=== PATIENT | male | born 1975 | race Caucasian/White ===

== ENCOUNTER 2020-09-05 14:52 | Emergency (ER) | payer MEDICARE, MEDICAID, SELFPAY ==
[2019-08-02 12:56] VITALS: BMI 31.1
[2020-09-05 14:53] VITALS: BP 160/136; PULSE 85; RESP 20; TEMP 36.2; O2SAT 97; BMI 39.4
--- NOTE | 2020-09-05 15:05 | EKG12_ITS ---
Test Reason : SOB Blood Pressure : / mmHG Vent. Rate : 076 BPM Atrial Rate : 076 BPM P-R Int : 168 ms QRS Dur : 086 ms QT Int : 396 ms P-R-T Axes : 063 053 030 degrees QTc Int : 445 ms Somatic / Motion Artifact Normal sinus rhythm Confirmed by ALLIE REVELES, MIKEY ([id number]), script editor ZEV ANNA ([id number]) on 09/10/2020 10:40:17 AM Referred By: HENRY Confirmed By:MIKEY KELLEY MD
--- NOTE | 2020-09-05 15:13 | ED.VIS.GEN ---
History of Present Illness Chief Complaint: Shortness of Breath Informant: Patient Onset: Days Context: Gradual Onset Timing: Continuous Current Severity: Moderate Maximum Severity: Moderate Narrative: Patient is a 45-year-old male who presents to the emergency department with cough shortness of breath. Patient states that he is been sick for about 10 days. He states that he was exposed to someone with Covid about 2 weeks ago. He states he began to get sick last Wednesday. He states he went to a court date last Wednesday and had a low-grade fever. He is been quarantining. He states that he is had diminished appetite, loss of taste and smell, and shortness of breath. He had a scant cough. He is also had intermittent fevers and chills. He has no history immunosuppression. He denies any history of underlying lung disease. He denies any other systemic complaints. Prior similar symptoms: No Recent Illness/Hospitalization: No Past Medical History - Allergies and Home Meds Allergies/Adverse Reactions: Allergies naproxen Adverse Reaction (Verified 09/05/20 14:53) Nausea Primary Care Physician: Care Physician,No Primary [Primary Care Provider] - Prior records reviewed: Yes Past Medical History: - - Depression Surgical History: - - Back surgery Smoking Status: Current every day smoker - Family History Maternal Family History: Reports: No pertinent history Review of Systems General: Reports: Malaise. Denies: Chills, Fever, Sweats Eyes: Denies: Visual changes - bilaterally, Diplopia ENT: Denies: Rhinorrhea, Sore throat Cardiovascular: Denies: Chest pain, Palpitations Respiratory: Reports: Cough. Denies: Dyspnea, Dyspnea on exertion Gastrointestinal: Reports: Nausea. Denies: Abdominal pain, Vomiting, Diarrhea, Melena, Hematochezia Genitourinary: Denies: Dysuria, Hematuria, Frequency Musculoskeletal: Reports: Myalgias. Denies: Back pain, Extremity Pain Skin: Denies: Rash, Wounds Neurological: Denies: Headache, Weakness, Numbness Physical Exam Vital Signs/Narrative: Vital Signs Temp Pulse Resp BP Pulse Ox 09/05/20 14:53 97.1 F L 85 20 H 160/136 H 97 Inital Vital Signs reviewed: Yes General: Well nourished, Well developed, No Acute Distress Head: Normocephalic, Atraumatic Eyes: Perrl, EOMI ENT: Moist mucous membranes, No rhinorrhea Neck: Supple, Nontender Cardiovascular: Regular rate, Regular rhythm, No murmurs Respiratory: No distress, CTA bilaterally, Chest nontender Abdomen: Soft, Nontender, Nondistended, Normal bowel sounds Back: Nontender, Normal Inspection Extremities: Nontender, No edema Skin: Normal color, No rash Neurological: Alert, Oriented x3, Cranial nerves II-XII grossly intact, Normal Strength, Normal Sensation Psychological: Normal affect, Normal Mood Diagnostic/Tx/Re-eval Clinical Impression(s) from Imaging Studies Chest X-Ray 09/05/20 15:36 IMPRESSION: Normal x-ray examination of the chest. Electronically Signed: Mian Burton MD at 15:53 EST Tel , Service support , Abnormal Lab Results 09/05/20 09/05/20 15:15 15:15 WBC 6.9 RBC 4.66 Hgb 14.3 Hct 42.6 MCV 91.4 MCH 30.7 MCHC 33.6 RDW Std Deviation 43.8 RDW Coeff of Kirt 13.0 Plt Count 289 MPV 8.9 Immature Gran % (Auto) 0.100 Neut % (Auto) 44.9 L Lymph % (Auto) 37.8 [place] % (Auto) 7.0 Eos % (Auto) 9.6 H Baso % (Auto) 0.6 Absolute Neuts (auto) 3.1 Absolute Lymphs (auto) 2.59 Nucleated RBC % 0 Sodium 141 Potassium 3.8 Chloride 111 H Carbon Dioxide 27.0 Anion Gap 3 L BUN 12 Creatinine 0.82 Estim Creat Clear Calc 122.24 Est GFR (MDRD) Af Amer 129 Est GFR (MDRD) Non-Af 107 BUN/Creatinine Ratio 14.6 Glucose 113 H Calcium 8.3 L Total Bilirubin 0.30 AST 21 ALT 27 Alkaline Phosphatase 73 Total Protein 7.3 Albumin 3.3 Globulin 4.0 Albumin/Globulin Ratio 0.8 L - Rhythm Strip Rhythm Strip: Sinus Rhythm Rate: 80 Ectopy: None - EKG Initial EKG Interpretation: Sinus Rhythm, No Acute Injury Pattern Prior: Unchanged - Medical Decision Making Patient is a 45-year-old male that presents to the emergency department with Covid type symptoms. However, he is not hypoxic or tachypneic. Metabolic work-up was obtained. Chest x-ray was obtained. There is no focal infiltrative process. Screening labs are unremarkable. I did obtain a send out Covid as I did not feel the rapid test would be diagnostic given the duration of his symptoms. The patient was counseled on his results and suspicion for Covid. At this point, I do not feel that he requires hospitalization. He is day 10 of illness. I do feel that he is safe for outpatient follow-up. Impression 1. COVID-19 ED Disposition - Plan for ED Patient: Instructions: Coronavirus Disease 2019 (COVID-19): Overview, Pending Outpatient COVID Test Prescriptions: Ondansetron [Zofran Odt] 4 mg PO Q8H PRN PRN #10 tab PRN Reason: Nausea Prescription Printed Referrals: Care Physician,No Primary [Primary Care Provider] -
[2020-09-05] MEDS: 0.9% Normal Saline 1,000 ML 125 ML IV (15:20)
[2020-09-05] MEDS: Acetaminophen 500 MG Tablet 1000 MG PO (15:20)
[2020-09-05 15:24] VITALS: O2SAT 98
[2020-09-05 15:28] LABS: Absolute Lymphocyte Count 2.59 X10^3/uL (0.83-4.51); Absolute Neutrophil Count 3.1 X10^3/uL (2.0-7.7); Basophil# 0.04 X10^3/uL; Basophil% 0.6 % (0-1); Eosinophil# 0.66 X10^3/uL; Eosinophils% 9.6 % (0-5); Hematocrit 42.6 % (40-54); Hemoglobin 14.3 g/dL (13.0-16.5); Lymphocyte # 2.59 X10^3/ul (4.0); Lymphocyte % 37.8 % (19-41); Mean Corp Hgb Conc 33.6 g/dL (32-36); Mean Corpuscular Hgb 30.7 pg (27.0-32.0); Mean Corpuscular Volume 91.4 fL (80-94); Mean Platelet Vol. 8.9 fl (6.2-12.0); Monocyte# 0.48 X10^3/uL; NRBC Flagged by Analyzer 0 % (0-5); Neutrophil # 3.07 X10^3/uL (2.7-7.7); Neutrophil % 44.9 % (47-70); Platelet Count 289 K/mm3 (150-450); RBC Distribution Width SD 43.8 fl (35.1-43.9); Red Blood Count 4.66 M/mm3 (4.6-6.2); White Blood Count 6.9 K/mm3 (4.4-11.0)
--- NOTE | 2020-09-05 15:36 | RAD_ITS ---
STUDY: X-RAY CHEST REASON FOR EXAM: Male, 45 years old. PT C/O COUGH, FEVER, SOB, LOSS OF TASTE AND SMELL AND SORE THROAT. REPORTS SYMPTOMS STARTING 9 DAYS AGO. TECHNIQUE: Single AP portable view of the chest. COMPARISON: 03/07/2019 FINDINGS: The lungs are clear and expanded. There is no demonstrated pleural abnormality. Normal size heart. Normal mediastinum and emily. Normal visualized pulmonary arteries. Normal visualized aortic arch and descending thoracic aorta. Normal visualized thoracic spine. Normal visualized ribs, clavicles, and shoulders. There is no demonstrated abnormality of the visualized soft tissue structures of the upper abdomen. RAD/Chest 1 View (Portable) IMPRESSION: Normal x-ray examination of the chest. Electronically Signed: Mian Burton MD at 15:53 EST Tel , Service support ,
[2020-09-05 15:39] LABS: ALB/GLOB Ratio 0.8 RATIO (0.9-2.4); AST(SGOT) 21 U/L (15-37); Alanine Aminotransfer ALT/SGPT 27 U/L (16-61); Albumin, Serum 3.3 g/dL (3.2-5.0); Alkaline Phosphatase 73 U/L (45-117); Anion Gap 3 (5-15); BUN 12 mg/dL (7-18); BUN/Creat Ratio 14.6 RATIO (10-20); Calcium,Total 8.3 mg/dL (8.5-10.1); Chloride 111 mmol/L (98-107); Creatinine, Serum 0.82 mg/dL (0.70-1.30); EST Glomerular Filtration Rate 107 mL/min (>60); Est Glom Filt Rate - Afr Amer 129 mL/min (>60); Estimated Creatinine Clearance 122.24 ml/min; Glucose 113 mg/dL (74-106); Potassium 3.8 mmol/L (3.5-5.1); Protein, Total 7.3 g/dL (6.4-8.2); Sodium Level 141 mmol/L (136-145)
[2020-09-05 16:21] VITALS: BP 130/86; PULSE 79; RESP 22; O2SAT 98
== END 2020-09-05 16:22 | disposition home or self-care (01) ==
LOC: ED 15:43
PROVIDERS: Emergency Provider Emergency Medicine
DX: U07.1 COVID-19 (principal); F17.200 Nicotine dependence, unspecified, uncomplicated
CPT/HCPCS: 71045; 80053; 85025; 87635; 93005; 96360; 99285; J7030; A4216; U0003

== ENCOUNTER 2020-09-19 11:11 | Emergency (ER) | payer MEDICARE, MEDICAID, SELFPAY ==
[2020-09-19 11:12] VITALS: BP 165/84; PULSE 85; RESP 20; TEMP 35.8; O2SAT 99; BMI 40.0
--- NOTE | 2020-09-19 11:26 | RAD_ITS ---
STUDY: X-RAY CHEST REASON FOR EXAM: Male, 45 years old. SOB X 2-3 WKS TECHNIQUE: Single AP portable view of the chest. COMPARISON: Comparison is made with prior examination dated 03/05/2021. FINDINGS: EKG electrodes are seen. There is blunting of the right costophrenic angle. Mild degree of vascular congestion. There is mild cardiac enlargement. Normal mediastinum and emily. Normal visualized pulmonary arteries. Normal visualized aortic arch and descending thoracic aorta. Normal visualized thoracic spine. Normal visualized ribs, clavicles, and shoulders. There is no demonstrated abnormality of the visualized soft tissue structures of the upper abdomen. RAD/Chest 1 View (Portable) IMPRESSION: Mild cardiomegaly. Findings suggestive of a mild degree of vascular congestion. Blunting of the right costophrenic angle. Electronically Signed: Anthony Garvin MD at 13:05 EST , Service support ,
--- NOTE | 2020-09-19 11:27 | EKG12_ITS ---
Test Reason : SOB Blood Pressure : / mmHG Vent. Rate : 070 BPM Atrial Rate : 070 BPM P-R Int : 172 ms QRS Dur : 090 ms QT Int : 388 ms P-R-T Axes : 060 051 026 degrees QTc Int : 419 ms Normal sinus rhythm Normal ECG Confirmed by ALLIE REVELES, MKIEY ([id number]), electronic news gathering editor ZEV ANNA ([id number]) on 09/20/2020 11:19:25 AM Referred By: JUSTO Confirmed By:MIKEY KELLEY MD
--- NOTE | 2020-09-19 11:29 | ED.VISSUMM ---
- ER Visit Summary Date of Service: 09/19/20 Chief Complaint: [Shortness of breath] History of Present Illness: The patient is a 45 M [presents to the emergency department complaint shortness of breath that started 3 weeks ago. Patient states that he has been evaluated in the emergency department about a week and a half ago and had a negative Covid test at that time. Patient states that he had quarantine at one point because he had an exposure to somebody that had Covid. Patient thinks he may have had another potential exposure within the last week.] Patient states that he does not feel any better and just has no energy and has had intermittent headaches and intermittent fevers. He had minimal cough. He denies any chest pain. He denies recent travel or surgery. No history of PE or DVT. Physical Examination: [HEENT-PERRLA, EOMI. Cranial nerves II through XII grossly intact. TMs clear. Mucous membranes moist. No adenopathy. Cardiovascular-regular rate and rhythm without murmur or ectopy Lungs-clear to auscultation, chest wall stable without crepitus or subcu emphysema Abdomen-normoactive bowel sounds, soft, nontender, no rebound or rigidity, no peritoneal signs. Extremities-intact ?4, normal range of motion, normal pulses, atraumatic] Test Results: [EKG obtained arrival shows sinus rhythm with a ventricular rate of 70 bpm with no acute segment changes. CBC with differential showing a 7.3, hemoglobin 14.8, hematocrit 44, platelets 313. Chemistries unremarkable. Troponin is less than 0.015. BNP was 3.3. D-dimer was 1.13. Covid 19 PCR testing was negative. Chest x-ray interpreted by myself as questionable small effusion in the right lower lobe otherwise nothing significant. Radiology read the x-ray as pulmonary congestion with some blunting of the right costophrenic angle. CTA of the chest obtained showed bilateral right upper lobe and left upper lobe pulmonary emboli that are nonocclusive. Patient also had right upper lobe and right middle lobe groundglass opacities noted.] Emergency Department Course and Treatment: [ IV established on arrival. Patient was given Levaquin 750 mg p.o. Patient started on Eliquis 10 mg p.o. Case was discussed with pulmonology Dr. Evin Zamora who asked that I send off an antibody test for Covid. Patient to be placed on Eliquis and Levaquin and given that he is not available next week due to vacation I was asked to refer him to internal medicine for follow-up. I discussed case with [place] nurse practitioner who schedule patient for follow-up visit next Wednesday at 9:[address] Vieira. Clinically I feel safe to send patient home and he is in agreement. I suspect patient may have had Covid which caused him to be hypercoagulable and developed pulmonary emboli.] Treatment Plan: [Discharged home with instructions to follow-up in 5 days with internal medicine. Patient advised to return if increased shortness of breath or condition should worsen anyway.] Disposition: [Discharged home in stable condition] Impression: [Bilateral pulmonary emboli Pneumonia Dyspnea] This note was generated with [employer] dictation software. It may contain incorrect words, spelling, and punctuation that were not noted in review of the chart prior to signing ED Disposition - Plan for ED Patient: Referrals: Care Physician,No Primary [Primary Care Provider] -
[2020-09-19 12:14] VITALS: BP 150/88; PULSE 78; RESP 16; TEMP 36.8; O2SAT 96
[2020-09-19 12:15] VITALS: BP 150/88; PULSE 78; RESP 16; O2SAT 96
[2020-09-19 12:21] LABS: Absolute Lymphocyte Count 2.38 X10^3/uL (0.83-4.51); Absolute Neutrophil Count 3.9 X10^3/uL (2.0-7.7); Basophil# 0.05 X10^3/uL; Basophil% 0.7 % (0-1); Eosinophil# 0.59 X10^3/uL; Hematocrit 44.4 % (40-54); Hemoglobin 14.8 g/dL (13.0-16.5); Lymphocyte # 2.38 X10^3/ul (4.0); Lymphocyte % 32.5 % (19-41); Mean Corp Hgb Conc 33.3 g/dL (32-36); Mean Corpuscular Hgb 30.6 pg (27.0-32.0); Mean Corpuscular Volume 91.9 fL (80-94); Mean Platelet Vol. 8.9 fl (6.2-12.0); Monocyte# 0.44 X10^3/uL; NRBC Flagged by Analyzer 0 % (0-5); Neutrophil # 3.86 X10^3/uL (2.7-7.7); Neutrophil % 52.7 % (47-70); Platelet Count 313 K/mm3 (150-450); RBC Distribution Width SD 44.3 fl (35.1-43.9); Red Blood Count 4.83 M/mm3 (4.6-6.2); White Blood Count 7.3 K/mm3 (4.4-11.0)
[2020-09-19 12:32] LABS: D-Dimer Quantitative (DVT/PE) 1.13 FEU/ug/m (0.27-0.49)
[2020-09-19 12:36] LABS: Anion Gap 5 (5-15); BUN 16 mg/dL (7-18); BUN/Creat Ratio 17.7 RATIO (10-20); Calcium,Total 9.4 mg/dL (8.5-10.1); Chloride 104 mmol/L (98-107); EST Glomerular Filtration Rate 96 mL/min (>60); Est Glom Filt Rate - Afr Amer 116 mL/min (>60); Estimated Creatinine Clearance 111.37 ml/min; Glucose 101 mg/dL (74-106); Potassium 4.1 mmol/L (3.5-5.1); Sodium Level 136 mmol/L (136-145)
--- NOTE | 2020-09-19 12:50 | CT_ITS ---
STUDY: CTA CHEST REASON FOR EXAM: Male, 45 years old. DYSPNEA/E LEV DDI KACI/SOB/CONGESTION RADIATION DOSAGE (If Supplied By Facility): CTDIvol = ( 15.04 ) mGy, DLP = ( 569.54 ) mGycm TECHNIQUE: The examination was performed with the intravenous administration of IV 100mL Isovue-370. Post-processing of the angiographic images was performed, with multiplanar reformation and 3D reconstruction. Individualized dose optimization techniques were used for this CT. COMPARISON: Comparison is made with prior chest radiograph done earlier today. FINDINGS: Multiple tiny nonocclusive intraluminal filling defects are seen in branches of the right upper and left upper pulmonary arteries. Normal thoracic aorta and visualized great vessels. There is no demonstrated aortic dissection. Normal heart and pericardium. Normal mediastinum. Normal hilar regions. Normal visualized trachea and bronchi. The lungs are well expanded. There are scattered focal areas of groundglass appearance in the right upper lobe as well as in the right middle lobe. Normal pleura. Normal chest wall structures. There are degenerative changes of thoracic spine. Normal visualized upper abdomen. CT/CTA Chest W/WO Contrast IMPRESSION: Multiple small nonocclusive intraluminal filling defects seen in branches of both the right upper and left upper pulmonary arterial branches. Several small areas of patchy groundglass appearance in the right upper lobe and right middle lobe. Electronically Signed: Anthony Garvin MD at 13:36 EST , Service support ,
[2020-09-19 12:54] LABS: Lactic Acid 1.1 mmol/L (0.4-1.9)
[2020-09-19 13:00] VITALS: BP 146/81; PULSE 70; RESP 22; TEMP 36.6; O2SAT 99
[2020-09-19 13:51] LABS: BNP,B-Type NATRIURETIC PEPTIDE 3.3 pg/mL (0-100)
[2020-09-19 14:00] VITALS: BP 121/86; PULSE 89; RESP 18; TEMP 36.9; O2SAT 99
--- NOTE | 2020-09-19 14:14 | ED.DEP ---
ED Disposition - Plan for ED Patient: Instructions: ED Pneumonia (Adult), Pulmonary Embolism Prescriptions: Apixaban [Eliquis] 5 mg PO BID #74 tab Prescription Printed Levofloxacin [Levaquin] 750 mg PO DAILY #7 tab Prescription Printed Referrals: Care Physician,No Primary [Primary Care Provider] - Josee Mata MD [STAFF PHYSICIAN] - 09/24/20 9:30 am
[2020-09-19] MEDS: APIXABAN 5 MG TABLET 10 MG PO (14:29)
[2020-09-19] MEDS: levoFLOXacin 750 MG Tablet PO (14:29)
[2020-09-20 01:00] LABS: SARS-COV-2 TOTAL ABS Reactive (Nonreactive)
== END 2020-09-19 14:30 | disposition home or self-care (01) ==
PROVIDERS: Emergency Provider Emergency Medicine
DX: I26.99 Other pulmonary embolism without acute cor pulmonale (principal); J18.9 Pneumonia, unspecified organism; Z72.0 Tobacco use
CPT/HCPCS: 71045; 71275; 80048; 83605; 83880; 84484; 85025; 85379; 86769; 87040; 87635; 93005; 99285; Q9967; A4216; U0002

== ENCOUNTER → 2021-04-14 15:00 | Outpatient (CLI) | payer MEDICARE, MEDICAID, SELFPAY ==
[2021-04-14 16:57] LABS: Absolute Lymphocyte Count 1.65 X10^3/uL (0.83-4.51); Absolute Neutrophil Count 3.5 X10^3/uL (2.0-7.7); Basophil# 0.03 X10^3/uL; Basophil% 0.5 % (0-1); Eosinophil# 0.32 X10^3/uL; Eosinophils% 5.4 % (0-5); Hematocrit 37.3 % (40-54); Hemoglobin 12.3 g/dL (13.0-16.5); Lymphocyte # 1.65 X10^3/ul (0.83-4.51); Lymphocyte % 27.9 % (19-41); Mean Corpuscular Hgb 31.1 pg (27.0-32.0); Mean Corpuscular Volume 94.4 fL (80-94); Mean Platelet Vol. 9.2 fl (6.2-12.0); Monocyte# 0.43 X10^3/uL; Monocyte% 7.3 % (0-10); NRBC Flagged by Analyzer 0 % (0-5); Neutrophil # 3.48 X10^3/uL (2.7-7.7); Neutrophil % 58.7 % (47-70); Platelet Count 401 K/mm3 (150-450); RBC Distribution Width CV 12.6 % (11.6-14.6); RBC Distribution Width SD 43.9 fl (35.1-43.9); Red Blood Count 3.95 M/mm3 (4.6-6.2); White Blood Count 5.9 K/mm3 (4.4-11.0)
[2021-04-14 17:13] LABS: Vitamin B12 457 pg/mL (211-911)
[2021-04-14 17:19] LABS: ALB/GLOB Ratio 0.8 RATIO (0.9-2.4); AST(SGOT) 44 U/L (15-37); Alanine Aminotransfer ALT/SGPT 46 U/L (16-61); Albumin, Serum 3.3 g/dL (3.2-5.0); Alkaline Phosphatase 69 U/L (45-117); Anion Gap 6 (5-15); BUN 10 mg/dL (7-18); BUN/Creat Ratio 12.6 RATIO (10-20); Calcium,Total 8.5 mg/dL (8.5-10.1); Chloride 107 mmol/L (98-107); Creatinine, Serum 0.79 mg/dL (0.70-1.30); EST Glomerular Filtration Rate 111 mL/min (>60); Est Glom Filt Rate - Afr Amer 134 mL/min (>60); Glucose 118 mg/dL (74-106); Potassium 3.4 mmol/L (3.5-5.1); Protein, Total 7.3 g/dL (6.4-8.2); Sodium Level 139 mmol/L (136-145); Thyroid Stim Hormone (TSH) 0.52 uIU/mL (0.358-3.74)
== END ==
PROVIDERS: PCP Internal Medicine; Visit Provider Physician Assistant
DX: E78.5 Hyperlipidemia, unspecified (principal); I10 Essential (primary) hypertension; M79.89 Other specified soft tissue disorders; R60.9 Edema, unspecified
CPT/HCPCS: 36415; 80053; 82607; 84443; 85025

== ENCOUNTER 2021-12-31 06:13 | Inpatient (IN) | payer MEDICARE, MEDICAID, SELFPAY ==
[2021-12-31] VITALS (12 sets, daily range): BP systolic 120–170; BP diastolic 70–102; PULSE 51–91; RESP 14–20; TEMP 36.2–36.9; O2SAT 92–100; BMI 83.5; BMI 37.3
--- NOTE | 2021-12-31 06:32 | EDS_ITS ---
HPI History of Present Illness Chief Complaint: Abd Pain Informant: patient Narrative Narrative: 46-year-old male presents to the emergency room for pain. Either he is not handling pain very well or he is a poor historian. It takes a while to get out of him that his abdomen is hurting. He is kicking his feet and flopping on the bed to the point that he basically comes out of the bed at the end of it. When asked where he is hurting he points to his upper abdomen and then rubs the whole abdomen stating that he hurts. He is unable to describe the pain. But he does say it does not radiate to the back. No nausea vomiting or diarrhea. The pain began 6 hours prior to arrival after he ate a hamburger. Most of this information nursing was able to obtain through an approximate 10- minute triage evaluation. For me he speaks minimally makes no point of eye contact and cannot sit still. [facility] Medical History (Updated 12/31/21 @ 06:[address] Johnson Quiñones DO) Bipolar 1 disorder Hyperlipemia Hypertension Manic depressive disorder Pulmonary embolism Stomach ulcer Home Medications Oxcarbazepine 1 tab PO DAILY 09/19/20 [History Last Taken Unknown] buspirone 15 mg PO DAILY 09/19/20 [History Last Taken Unknown] hydroxyzine HCl 50 mg PO DAILY 09/19/20 [History Last Taken Unknown] nortriptyline 150 mg PO DAILY 09/19/20 [History Last Taken Unknown] apixaban 5 mg tablet 5 mg PO BID #60 tab 04/14/21 [Rx Last Taken Unknown] comp.stocking,thigh,long,large #2 ea 04/14/21 [Rx Last Taken Unknown] multivitamin 1 tab PO DAILY #90 tab 04/14/21 [Rx Last Taken Unknown] sildenafil 25 mg tablet 25 mg PO DAILY PRN #7 tab 04/14/21 [Rx Last Taken Unknown] levalbuterol tartrate 45 mcg/actuation aerosol inhaler 2 inh INHALATION Q6H PRN #15 g 04/16/21 [Rx Last Taken Unknown] Allergy/AdvReac Type Severity Reaction Status Date / Time naproxen Allergy NAUSEA AND Verified 04/14/21 14:13 BLEEDING Family History Father Diabetes Other Alcoholism Anxiety and depression Myocardial infarction Surgical History History of back surgery Social History Smoking Status: Current every day smoker tobacco type: cigarettes Tobacco: How many years used: 30 alcohol intake: never substance use type: does not use what type of physical activity do you participate in: none ROS ROS ED Constitutional Constitutional ED: Denies chills, fever(s) or weight loss Eyes Eyes: Denies change in vision or diplopia ENT ENT ED: Denies ear pain, rhinorrhea or sore throat Cardiovascular Cardiovascular: Denies chest pain, orthopnea, palpitations or racing heartbeat Respiratory/Chest Respiratory/Chest: Denies cough, dyspnea or orthopnea Gastrointestinal Gastrointestinal: Reports abdominal pain; Denies diarrhea, nausea or vomiting Genitourinary Genitourinary ED: Denies dysuria, hematuria or urinary frequency Musculoskeletal Musculoskeletal: Denies arthralgias or myalgias Integumentary Denies abscess or rash Neurologic Neurologic: Denies headache(s) or weakness Psychiatric Psychiatric: Denies anxiety, depression, suicidal ideation or suicidal thoughts Endocrine Endocrinology: Denies polydipsia, polyphagia or polyuria Allergic/Immunologic Allergic/Immunologic ED: Denies mouth swelling, tongue swelling or urticaria EXAM Physical Exam Narrative Exam Narrative: Patient kicking his feet and flopping in the bed. He is screaming moaning groaning. When asked to sign the consent to treat he scribbles a line and yells at the pricing clerk. Const Vital Signs: 12/31/21 06:14 Temperature 97.9 F Temperature Source Temporal Pulse Rate 56 L Respiratory Rate 18 Blood Pressure 167/99 H Blood Pressure Mean 121 Pulse Ox 99 Oxygen Delivery Method Room Air Positive well nourished and well developed General Appearance ED: well developed HEENT Reports normocephalic, head/scalp atraumatic, TM's clear and moist mucous membranes Negative for trauma Tympanic Membrane ED: Yes TM's clear Eyes PERRL and EOMs intact bilaterally Neck no lymphadenopathy, supple and no JVD Resp normal respiratory effort and clear to auscultation bilaterally Cardio regular rate, regular rhythm and no murmurs GI GI Narrative: Patient states his hurts no matter where I push on his abdomen. However the abdomen is soft with normal active bowel sounds and no rebound Auscultation: normoactive bowel sounds Palpation: soft and tender Back/Spine no CVA tenderness and normal ROM Extremity normal to inspection General Extremety ED: Negative for edema General Extremity: Negative for edema Neuro oriented x3 and CN's II-XII intact bilaterally Sensorium / Orientation: alert Motor Exam: strength 5/5 throughout Psych mental status grossly normal Mood & Affect: Negative for depressed or tearful Skin no rashes or lesions noted and no wounds MDM MDM MDM Narrative Medical decision making narrative: Patient was advised that he can either stop screaming at staff or he can leave. He has been disruptive and I had to leave the patient's room to come back into his room to ask him to please stop screaming. After that somehow he was able to stop screaming and stop flopping on the bed. Blood work will be obtained. He received a GI cocktail. His troponin will represent a 6-hour of constant pain. CT abdomen pelvis is currently pending. Care the patient will be checked out to the oncoming physician for final disposition Lab Data Labs: Laboratory Results - last 24 hr 12/31/21 06:22 WBC 10.4 RBC 4.97 Hgb 16.7 H Hct 47.5 MCV 95.6 H MCH 33.6 H MCHC 35.2 RDW Std Deviation 42.7 RDW Coeff of Kirt 12.1 Plt Count 282 MPV 9.0 Immature Gran % (Auto) 0.300 Neut % (Auto) 63.0 Lymph % (Auto) 26.0 [place] % (Auto) 5.8 Eos % (Auto) 4.4 Baso % (Auto) 0.5 Absolute Neuts (auto) 6.6 Absolute Lymphs (auto) 2.71 Nucleated RBC % 0 Discharge Plan Triage Chief Complaint: Abd Pain ED Provider: Johnson Quiñones Dx/Rx/DC Orders Clinical Impression: Abdominal pain Prescriptions: No Action multivitamin Tablet 1 tab PO DAILY Qty: 90 RF: 0 apixaban 5 mg tablet 5 mg PO BID Qty: 60 RF: 1 (DME) comp.stocking,thigh,long,large Misc See Rx Instructions .ROUTE .MEDSUPPLY Qty: 2 RF: 2 sildenafil 25 mg tablet 25 mg PO DAILY PRN (Reason: sexual activity) Qty: 7 RF: 1 hydroxyzine HCl 50 MG tablet 50 mg PO DAILY RF: 0 nortriptyline 50 MG capsule 150 mg PO DAILY RF: 0 buspirone 15 MG tablet 15 mg PO DAILY RF: 0 Oxcarbazepine 600 MG tablet 1 tab PO DAILY RF: 0 levalbuterol tartrate 45 mcg/actuation HFA aerosol inhaler 2 inh inhalation Q6H PRN (Reason: shortness of breath or wheezing) Qty: 15 RF: 1 Primary Care Provider: Josee Mata Referrals: Josee Mata MD [Primary Care Provider] -
[2021-12-31] MEDS: Mag Hydrox/Al Hydrox/Simeth 30 ML UDC PO (06:36)
[2021-12-31 06:43] LABS: Absolute Lymphocyte Count 2.71 X10^3/uL (0.83-4.51); Absolute Neutrophil Count 6.6 X10^3/uL (2.0-7.7); Basophil# 0.05 X10^3/uL; Basophil% 0.5 % (0-1); Eosinophil# 0.46 X10^3/uL; Eosinophils% 4.4 % (0-5); Hematocrit 47.5 % (40-54); Hemoglobin 16.7 g/dL (13.0-16.5); Lymphocyte # 2.71 X10^3/ul (0.83-4.51); Mean Corp Hgb Conc 35.2 g/dL (32-36); Mean Corpuscular Hgb 33.6 pg (27.0-32.0); Mean Corpuscular Volume 95.6 fL (80-94); Monocyte# 0.61 X10^3/uL; Monocyte% 5.8 % (0-10); NRBC Flagged by Analyzer 0 % (0-5); Neutrophil # 6.57 X10^3/uL (2.7-7.7); Platelet Count 282 K/mm3 (150-450); RBC Distribution Width CV 12.1 % (11.6-14.6); RBC Distribution Width SD 42.7 fl (35.1-43.9); Red Blood Count 4.97 M/mm3 (4.6-6.2); White Blood Count 10.4 K/mm3 (4.4-11.0)
--- NOTE | 2021-12-31 06:53 | CT_ITS ---
STUDY: CT ABDOMEN AND PELVIS WITH CONTRAST REASON FOR EXAM: Male, 46 years old. abdominal pain RADIATION DOSAGE (If Supplied By Facility): CTDIvol = ( 18.74 ) mGy, DLP = ( 1326.55 ) mGycm TECHNIQUE: Transaxial images were obtained from the dome of the diaphragm to the symphysis pubis without oral contrast. IV 100mL Isovue-370 was administered. Sagittal and coronal images were reconstructed. Individualized dose optimization techniques were used for this CT. COMPARISON: None. FINDINGS: LOWER CHEST: Normal. LIVER: Normal. GALLBLADDER/BILE DUCTS: Distended gallbladder with mild pericholecystic fat stranding. No radiopaque gallstones. PANCREAS: Normal. SPLEEN: Normal. ADRENAL GLANDS: Normal. KIDNEYS/URETERS/BLADDER: Normal. RETROPERITONEUM/AORTA: Mild atherosclerotic calcifications.. BOWEL/MESENTERY: Scattered colonic diverticulosis without discrete evidence of acute diverticulitis. No bowel dilatation or bowel wall thickening. APPENDIX: Identified and normal. PERITONEUM: Normal. REPRODUCTIVE ORGANS: Normal. BONES/SOFT TISSUES: Status post L5-S1 posterior spine fusion. No acute abnormality. OTHER: None. CT/Abdomen/Pelvis W IV Cont ONLY IMPRESSION: 1. Distended gallbladder with pericholecystic inflammatory changes, recommend correlation for acute cholecystitis. 2. No bowel dilatation or bowel wall thickening. Electronically Signed: Joselo Ng MD at 7:35 EDT ,
[2021-12-31 06:59] LABS: ALB/GLOB Ratio 0.7 RATIO (0.9-2.4); AST(SGOT) 33 U/L (15-37); Alanine Aminotransfer ALT/SGPT 28 U/L (16-61); Albumin, Serum 3.2 g/dL (3.2-5.0); Alkaline Phosphatase 78 U/L (45-117); Anion Gap 6 (5-15); BUN 13 mg/dL (7-18); BUN/Creat Ratio 13.1 RATIO (10-20); Calcium,Total 8.8 mg/dL (8.5-10.1); Chloride 103 mmol/L (98-107); EST Glomerular Filtration Rate 85 mL/min (>60); Est Glom Filt Rate - Afr Amer 103 mL/min (>60); Estimated Creatinine Clearance 99.16 ml/min; Globulin 4.8 g/dL (2.2-4.2); Glucose 180 mg/dL (74-106); Lipase 111 U/L (73-393); Potassium 3.7 mmol/L (3.5-5.1); Sodium Level 138 mmol/L (136-145)
[2021-12-31 07:16] LABS: Troponin-I HS 5 pg/mL (3.0-78.0)
--- NOTE | 2021-12-31 07:54 | US_ITS ---
STUDY: ABDOMINAL ULTRASOUND - RIGHT UPPER QUADRANT REASON FOR VISIT: Male, 46 years old Cullen sign TECHNIQUE: Ultrasound evaluation of the right upper quadrant was performed with real-time and static lott-scale imaging. TECHNICAL QUALITY: Adequate. COMPARISON: CT 12/31/2021 FINDINGS: Liver: The liver measures 18.2 cm. There is increased echogenicity consistent with fatty infiltration. The bile ducts are within normal limits. There is hepatic color flow. The direction of portal flow is hepatopetal. There is no demonstrated mass lesion. Gallbladder: There is a markedly distended gallbladder. The gallbladder wall measures 2 mm. There is a positive sonographic Cullen''s sign. There is no pericholecystic fluid. There are no gallstones. Common Bile Duct (C.B.D.): The common bile duct is not visualized. Pancreas: There is nonvisualization of the pancreas.. Right Kidney: Normal size of the right kidney. The right kidney measures 11.5 cm. Normal renal cortex. The right cortex measures 2.2 cm. There is no demonstrated renal mass or cyst. There is no right hydronephrosis. US/Gallbladder IMPRESSION: Gallbladder hydrops with a positive sonographic Cullen sign. Electronically Signed: Mian Burton MD at 9:37 EDT ,
[2021-12-31] MEDS: Morphine 4 MG/ML Syringe IV (07:56)
[2021-12-31] MEDS: Ondansetron 4 MG/2 ML Vial IV ×2 (07:57→21:06)
--- NOTE | 2021-12-31 08:41 | ED.RN ---
Pt is laying on the ground in the bathroom. RN informed pt he needed to get back in bed. Pt states its colder on the floor. RN instructed pt to return to bed. pt is still on the floor.
--- NOTE | 2021-12-31 12:14 | EKG12_ITS ---
Test Reason : Blood Pressure : / mmHG Vent. Rate : 051 BPM Atrial Rate : 042 BPM P-R Int : 000 ms QRS Dur : 096 ms QT Int : 440 ms P-R-T Axes : 000 071 038 degrees QTc Int : 405 ms Junctional rhythm Abnormal ECG Confirmed by SANDY REVELES, NATANAEL ([id number]), editor in chief BALJEET CRAWFORD ([id number]) on 01/02/2022 10:49:50 A M Referred By: Confirmed By:SOLE DELGADO MD
--- NOTE | 2021-12-31 12:16 | HP.PCM.SX_ITS ---
HPI - General HPI Narrative VINNY HASSAN, is a 46 M who presents to the ER due to abdominal pain. Patient states the pain started about 3 AM patient had a hamburger about 6 hours prior. Patient is not the best historian and usually is not making eye contact. Patient states he did have some nausea and vomiting with this. Patient CT abd omen pelvis which showed distended gallbladder with some inflammation, ultrasound was done which showed no gallstones, pericholecystic fluid, normal common bile duct, positive Cullen. Patient's labs are within normal limits. Patient previously had a DVT in his leg about a year ago per patient however he is supposed to be on Eliquis but he states he has not taken any of his medication for about the last 6 months. [facility] Medical History (Updated 12/31/21 @ 12:[address] Seema Gann MD) Bipolar 1 disorder Hyperlipemia Hypertension Manic depressive disorder Pulmonary embolism Stomach ulcer Home Medications Oxcarbazepine 1 tab PO DAILY 09/19/20 [History Last Taken Unknown] buspirone 15 mg PO DAILY 09/19/20 [History Last Taken Unknown] hydroxyzine HCl 50 mg PO DAILY 09/19/20 [History Last Taken Unknown] nortriptyline 150 mg PO DAILY 09/19/20 [History Last Taken Unknown] apixaban 5 mg tablet 5 mg PO BID #60 tab 04/14/21 [Rx Last Taken Unknown] comp.stocking,thigh,long,large #2 ea 04/14/21 [Rx Last Taken Unknown] multivitamin 1 tab PO DAILY #90 tab 04/14/21 [Rx Last Taken Unknown] sildenafil 25 mg tablet 25 mg PO DAILY PRN #7 tab 04/14/21 [Rx Last Taken Unknown] levalbuterol tartrate 45 mcg/actuation aerosol inhaler 2 inh INHALATION Q6H PRN #15 g 04/16/21 [Rx Last Taken Unknown] Allergy/AdvReac Type Severity Reaction Status Date / Time naproxen Allergy NAUSEA AND Verified 04/14/21 14:13 BLEEDING Family History Father Diabetes Other Alcoholism Anxiety and depression Myocardial infarction Surgical History History of back surgery Social History Smoking Status: Current every day smoker tobacco type: cigarettes Tobacco: How many years used: 30 alcohol intake: never substance use type: does not use what type of physical activity do you participate in: none Vital Signs Vital Signs Vital Signs: 12/31/21 06:14 12/31/21 11:11 Temperature 97.9 F Temperature Source Temporal Pulse Rate 56 L 51 L Respiratory Rate 18 16 Blood Pressure 167/99 H 155/80 H Blood Pressure Mean 121 105 Pulse Ox 99 99 Oxygen Delivery Method Room Air Room Air Weight Weight: 615 lb 15.544 oz Body Mass Index (BMI) 83.5 Physical Exam Const alert and oriented x3 General Appearance: other Patient appears uncomfortable on exam HEENT normocephalic and head/scalp atraumatic Resp normal respiratory effort Cardio regular rate GI soft to palpation; Negative for non-distended Palpation: tender RLQ and RUQ (Mostly right upper) and guarding other (Voluntary) Extremity no clubbing, cyanosis or edema Neuro CN's II-XII intact bilaterally Psych mental status grossly normal Results Lab / Micro Data Result Diagrams: 12/31/21 06:22 12/31/21 06:22 Labs: Laboratory Results - last 24 hr 12/31/21 06:22: WBC 10.4, RBC 4.97, Hgb 16.7 H, Hct 47.5, MCV 95.6 H, MCH 33.6 H , MCHC 35.2, RDW Std Deviation 42.7, RDW Coeff of Kirt 12.1, Plt Count 282, MPV 9.0, Immature Gran % (Auto) 0.300, Neut % (Auto) 63.0, Lymph % (Auto) 26.0, Braxton % (Auto) 5.8, Eos % (Auto) 4.4, Baso % (Auto) 0.5, Absolute Neuts (auto) 6.6, Absolute Lymphs (auto) 2.71, Nucleated RBC % 0 12/31/21 06:22: Sodium 138, Potassium 3.7, Chloride 103, Carbon Dioxide 29.0, Anion Gap 6, BUN 13, Creatinine 1.00, Estim Creat Clear Calc 99.16, Est GFR (MDRD) Af Amer 103, Est GFR (MDRD) Non-Af 85, BUN/Creatinine Ratio 13.1, Glucose 180 H, Calcium 8.8, Total Bilirubin 0.30, AST 33, ALT 28, Alkaline Phosphatase 78, Total Protein 8.0, Albumin 3.2, Globulin 4.8 H, Albumin/Globulin Ratio 0.7 L , Lipase 111 12/31/21 06:22: Troponin I High Sens 5 Radiology Impression Abdomen/Pelvis CT 12/31/21 06:53 IMPRESSION: 1. Distended gallbladder with pericholecystic inflammatory changes, recommend correlation for acute cholecystitis. 2. No bowel dilatation or bowel wall thickening. Electronically Signed: Joselo Ng MD at 7:35 EDT , Gallbladder Ultrasound 12/31/21 07:54 IMPRESSION: Gallbladder hydrops with a positive sonographic Cullen sign. Electronically Signed: Mian Burton MD at 9:37 EDT , Assessment & Plan Assessment/Plan (1) Acute cholecystitis: PLAN: Reviewed the anatomy with the patient and discussed the procedure: laparoscopic cholecystectomy with cholangiograms, possible open. Review risks including but not limited to bleeding, infection, hernia, bile leak, retained gallstones requiring another procedure ERCP- Endoscopic Retrograde Cholangiopancreatography, injury to another organ (bile ducts, common bile duct, small bowel, etc.) may require transfer to her tertiary care facility and conver marc to an open procedure. Unsure if patient understood conversation as his eyes were shut and he was usually not making eye contact. Patient was able to tell me you what the plan for surgery was. Asked patient if he wanted me to talk to any family patient declined. All questions were answered. Seema Gann M.D. Pager: [phone] [facility] [address] [place] [address], [address] [place] [address] Office: [phone] Procedure Criteria Type of Procedure Procedure Type: Elective Elective Risks - COVID COVID Risk Discussion: The surgeon/proceduralist and patient have discussed in detail the risk of exposure to and/or potential harm posed by the COVID-19 virus with having a surgery/procedure at this time versus the risk of delaying the surgery/procedure. It is not possible to know either the risk of delaying the surgery or procedure or chance of getting an infection with perfect accuracy, but a joint decision was made between the patient and the surgeon/proceduralist to proceed at this time with the scheduled surgery/procedure as indicated on the consent form.
--- NOTE | 2021-12-31 13:00 | GALL_PTH ---
PATIENT: VINNY HASSAN LOC: [facility] U#:[id number] AGE/SX: 47/M ROOM: [facility] RE01/01/[address]: Dr. Seema Gann MD : 1975 BED: 1 DIS: 01/03/2022 SPEC #: [id number] RECD: 01/01/22 07:38 STATUS: SHELIA RECarlie #: [id number] LUIS ANGEL: 12/31/21 13:[address]: Seema Gann DEPT: SURGICAL PATHOLOGY RECD BY: Ave Weiss ENTERED: 01/01/22 08:10 SP TYPE: JUANITO BOGGS DR: Dr. Josee Mata MD Tissues: Gallbladder, NOS Procedures: Surgery Specimen Level III HEADER OPERATION: Laparoscopic cholecystectomy PRE-OP DIAGNOSIS: Acute cholecystitis TISSUE SUBMITTED: Gallbladder MICROSCOPIC DIAGNOSIS Gallbladder, cholecystectomy: Chronic cholecystitis with focal acute cholecystitis. Cholelithiasis. AM:indra 01/02/2022 MICROSCOPIC DESCRIPTION Slides are reviewed. GROSS DESCRIPTION Received is one container labeled with the patient's name and designated gallbladder. The specimen consists of a previously opened gallbladder measuring 8.5 cm in length and up to 4 cm in diameter. The external surface is pink-gilliland, smooth and glistening for the most part. Focally it is granular, hemorrhagic and contains cautery artifact. The gallbladder contains hemorrhagic fluid. Present in the container is one round brown stone measuring 1.5 cm in greatest dimension. The mucosa is congested and hemorrhagic. Sections of the gallbladder wall reveal hemorrhagic cut surfaces. The gallbladder wall measures up to 0.5 cm in thickness. The gallbladder is markedly disrupted in the area of cystic duct. Attenuator sections from the gallbladder and the cystic duct are submitted in two cassettes. / SJ:rg 01/01/2022 TC:2 CPT: 70626
--- NOTE | 2021-12-31 13:50 | NURSING ---
Report called to THAD.
--- NOTE | 2021-12-31 13:57 | NURSING ---
Called patient's pharmacy, [facility] and the only current medication they have on file is Eliquis 5mg PO BID but it has not been filled since March 2021.
--- NOTE | 2021-12-31 13:59 | EKG12_ITS ---
Test Reason : PRE-OP Blood Pressure : / mmHG Vent. Rate : 052 BPM Atrial Rate : 033 BPM P-R Int : 000 ms QRS Dur : 090 ms QT Int : 454 ms P-R-T Axes : 000 060 031 degrees QTc Int : 422 ms Junctional rhythm Abnormal ECG When compared with ECG of 31-DEC-2021 12:38, MANUAL COMPARISON REQUIRED, DATA IS UNCONFIRMED Confirmed by SANDY REVELES, NATANAEL ([id number]), business editor BALJEET CRAWFORD ([id number]) on 01/05/2022 10:13:21 A M Referred By: JOHN Confirmed By:SOLE DELGADO MD
[2021-12-31] MEDS: Lactated Ringers 1,000 ML 15 ML IV ×2 (14:10→16:30)
[2021-12-31] MEDS: Bupivacaine Mpf 0.5% 30 ML VIAL (14:58)
--- NOTE | 2021-12-31 16:34 | PCM.OPRPT ---
Report of Operation Date of Procedure: 12/31/21 Pre-Operative Diagnosis: Acute cholecystitis, hydrops of the gallbladder Post-Operative Diagnosis: Same Surgery/Procedure Performed:: Laparoscopic cholecystectomy, VIKTORIYA placement Surgeon: Seema Gann Type of Anesthesia: General/Supplemental Anesthesiologist: Asad Frank Special Medications: Zosyn 3.375 g IV given in the ER for acute cholecystitis Specimen's removed: Gallbladder wall and stone Drains: VIKTORIYA 15 Fr Estimated Blood Loss (mL): 300 cc Description of Procedure: Indications: this is a 46 year-old male who developed abdominal pain/nausea/vomiting and on workup was found to have acute cholecystitis, hydrops of the gallbladder, no gallstones seen on imaging, with a normal common bile duct. Laparoscopic cholecystectomy was elected. Description procedure: The patient was placed on operating table in supine position. A timeout was completed verifying correct patient, procedure, site, position and special equipment prior to beginning procedure. General Anesthesia was induced. The abdomen was prepped and draped in usual sterile fashion. An incision was made in the natural skin line above the umbilicus. The fascia was elevated and incised. The peritoneum was elevated and incised. Entry into the peritoneum was confirmed visually and no bowel was noted in the vicinity of the incision. Rojas trocar was placed. The abdomen was insufflated with carbon dioxide to a pressure of 12-15 mmHg. Patient tolerated insufflation well. The laparoscope was then inserted and abdomen inspected. No injuries from initial trocar placement were noted. Additional trochars were then inserted in the following locations 5 mm trocar in the epigastrium and 2 more 5 mm trochars along the right costal margin. The gallbladder was noted to be tense and aspiration needle was used to decompress the gallbladder. The table is placed in reverse Trendelenburg position with the right side up. The dome of the gallbladder was grasped with atraumatic grasper passed through the lateral port and retracted over the dome of the liver. Infundibulum was then grasped with atraumatic grasper through the midclavicular port and retracted to the right lower quadrant. There were dense adhesions at the area of the neck of the gallbladder. The cystic artery was dissected as we are going through the peritoneum anteriorly to the neck of the gallbladder. This was doubly clipped and divided. Due to the dense adhesions was not able to get any lower on the neck of the gallbladder due to increased risk of injury. The epigastric trocar was enlarged to 12 mm trocar--to accommodate a 10 mm clips x2 on the cystic duct; however this area was a tight fit for 2 clips. There was noted to be a stone right at the neck of the gallbladder. Due to the dense adhesions had some bleeding from the gallbladder fossa and attempting to dissect the posterior wall, 5 mm metal clip glass loading equipment tender was used to control the bleeding. Harmonic was then used this to remove the anterior wall leaving the small amount of posterior wall in place. The Erby was used on the posterior remaining wall. Hemostasis was checked and the gallbladder and contained stones were removed using the endoscopic retrieval bag through the umbilical port. The gallbladder wall and stone was passed off table as specimen. The gallbladder fossa was irrigated and Surgicel powder was placed--hemostasis obtained. 15 Frisian VIKTORIYA was placed in the right upper quadrant and secured with 3-0 nylon suture. There is no evidence of bleeding from the gallbladder fossa or cystic artery leakage of bile from the cystic duct stump. Secondary trochars removed under direct vision. No bleeding was noted the trocar sites. The laparoscope was withdrawn and umbilical trocar removed. The abdomen was allowed to collapse. The fascia of the 12 mm trocar was closed with a [id number] 0 Vicryl suture x 2. The skin was closed with sutures of 4-0 Monocryl and Steri-Strips. The patient was extubated. The patient tolerated procedure well and was taken to the postanesthesia care unit in stable condition. Grafts/Implants Used: none Complications Incidental blood loss 300cc
[2021-12-31] MEDS: Bacitracin 500 UNITS/GM PACKET (16:54)
[2021-12-31] MEDS: 0.9% Normal Saline 1,000 ML 120 ML IV (18:37)
[2021-12-31] MEDS: 0.9% Saline Lock 10 ML Syringe IV (20:08)
[2021-12-31] MEDS: HYDROmorphone 0.5 MG/0.5 ML SYRINGE IV (21:07)
[2021-12-31] MEDS: oxyCODONE 5 MG Tablet PO (23:21)
[2022-01-01] MEDS: HYDROmorphone 0.5 MG/0.5 ML SYRINGE IV (00:42)
[2022-01-01 02:00] VITALS: BP 143/94; PULSE 50; RESP 18; TEMP 36.5; O2SAT 97
[2022-01-01] MEDS: 0.9% Normal Saline 1,000 ML 120 ML IV ×2 (04:39→13:47)
--- NOTE | 2022-01-01 04:48 | NURSING ---
Discussed straight cath with pt. Pt refused states F that, osvaldo my langage.Pt denies the urge to void, encouraged pt to try to go in the urinal.
[2022-01-01 06:00] VITALS: BP 148/85; PULSE 53; RESP 16; TEMP 36.6; O2SAT 97
[2022-01-01 07:54] VITALS: O2SAT 96
--- NOTE | 2022-01-01 08:26 | PCM.PN.SRG ---
Subjective Subjective Patient complains of right-sided abdominal pain however it is different than his previous pain before surgery. Patient's VIKTORIYA is bilious-75cc over night. Objective Data Objective Data Vital Signs: Vital Signs Temp Pulse Resp BP Pulse Ox 97.8 F 53 L 16 148/85 H 96 01/01/22 06:00 01/01/22 06:00 01/01/22 06:00 01/01/22 06:00 01/01/22 07:54 Oxygen Flow Rate (L/min) 2 Oxygen Delivery Method Nasal Cannula Weight: 275 lb 5.718 oz Body Mass Index (BMI) 37.3 Intake & Output: Intake and Output for Last 24 Hours 12/30/21 12/31/21 01/01/22 23:59 23:59 23:59 Intake Total 1242 / 1642 1568 / 1568 Output Total 410 / 410 Balance 1212 / 1552 1158 / 1158 Lab / Micro Data Result Diagrams: 01/01/22 08:40 01/01/22 08:40 Micro: Microbiology 12/31/21 12:17 Nasal Secretion SARS-CoV-2 Antigen (Rapid) - Final Radiography Diagnostic Testing: Radiology Impression Gallbladder Ultrasound 12/31/21 07:54 IMPRESSION: Gallbladder hydrops with a positive sonographic Cullen sign. Electronically Signed: Mian Burton MD at 9:37 EDT , Physical Exam Resp normal respiratory effort Cardio regular rate GI GI Narrative: Abdomen: Soft, nondistended, tender near incision's dressed clean dry and intact, no peritoneal signs, VIKTORIYA bilious Assessment & Plan Assessment/Plan (1) S/P laparoscopic cholecystectomy: (2) Acute cholecystitis: (3) Bile leak, postoperative: PLAN: Patient is tolerating clears. N.p.o. at noon. Patient's VIKTORIYA is bilious --did discuss with Dr. Bales planning for an ERCP later today. Zosyn IV Pain control Encourage ambulation Labs pending, holding off on Lovenox due to bleeding during lap darrin Seema Gann M.D. Pager: [phone] [facility] [address] [place] [address], [address] [place] [address] Office: [phone]
[2022-01-01 08:56] LABS: Absolute Lymphocyte Count 1.92 X10^3/uL (0.83-4.51); Absolute Neutrophil Count 14.3 X10^3/uL (2.0-7.7); Basophil# 0.03 X10^3/uL; Basophil% 0.2 % (0-1); Eosinophil# 0.01 X10^3/uL; Eosinophils% 0.1 % (0-5); Hematocrit 43.6 % (40-54); Hemoglobin 15.1 g/dL (13.0-16.5); Lymphocyte # 1.92 X10^3/ul (0.83-4.51); Lymphocyte % 11.2 % (19-41); Mean Corp Hgb Conc 34.6 g/dL (32-36); Mean Corpuscular Volume 95.4 fL (80-94); Mean Platelet Vol. 9.1 fl (6.2-12.0); Monocyte# 0.78 X10^3/uL; Monocyte% 4.6 % (0-10); NRBC Flagged by Analyzer 0 % (0-5); Neutrophil # 14.27 X10^3/uL (2.7-7.7); Neutrophil % 83.3 % (47-70); Platelet Count 275 K/mm3 (150-450); RBC Distribution Width CV 12.4 % (11.6-14.6); RBC Distribution Width SD 43.4 fl (35.1-43.9); Red Blood Count 4.57 M/mm3 (4.6-6.2); White Blood Count 17.1 K/mm3 (4.4-11.0)
[2022-01-01 09:38] LABS: AST(SGOT) 23 U/L (15-37); Alanine Aminotransfer ALT/SGPT 33 U/L (16-61); Albumin, Serum 2.7 g/dL (3.2-5.0); Alkaline Phosphatase 61 U/L (45-117); Anion Gap 6 (5-15); BUN 14 mg/dL (7-18); BUN/Creat Ratio 14.6 RATIO (10-20); Bilirubin, Direct 0.19 mg/dL (0.00-0.30); Calcium,Total 8.2 mg/dL (8.5-10.1); Chloride 102 mmol/L (98-107); Creatinine, Serum 0.96 mg/dL (0.70-1.30); EST Glomerular Filtration Rate 88 mL/min (>60); Est Glom Filt Rate - Afr Amer 107 mL/min (>60); Estimated Creatinine Clearance 102.16 ml/min; Globulin 4.6 g/dL (2.2-4.2); Glucose 159 mg/dL (74-106); Potassium 4.4 mmol/L (3.5-5.1); Protein, Total 7.3 g/dL (6.4-8.2); Sodium Level 136 mmol/L (136-145)
[2022-01-01 10:00] VITALS: BP 141/83; PULSE 63; RESP 16; TEMP 36.4; O2SAT 98
[2022-01-01] MEDS: Acetaminophen 325 MG Tablet 650 MG PO ×2 (10:00→17:38)
[2022-01-01] MEDS: oxyCODONE 5 MG Tablet PO ×3 (10:00→21:54)
--- NOTE | 2022-01-01 17:12 | PCM.CONS.GEN ---
Assessment & Plan Assessment/Plan (1) Bile leak, postoperative: PLAN: He will need to undergo an ERCP with likely sphincterotomy and stent placement. He was explained alternatives, risk, benefits including outstanding bleeding, infection, sepsis, perforation, need for emergent . Have an ASA of 3. HPI Consult Data Date of Consult: 01/01/22 HPI Narrative HPI Narrative: VINNY HASSAN, is a 47 M who presents from home with worsening abdominal pain. Patient says he woke up in middle night with worsening abdominal pain and midepigastric region radiating down to the right upper quadrant. He was afebrile on admission and normotensive. He also has a past medical history of bipolar disorder, hyperlipidemia, major depressive disorder, pulmary embolism, stomach ulcer. Patient states the pain started about 3 AM patient had a hamburger about 6 hours prior. P patient denies any nausea and is able to eat. Patient CT abdomen pelvis which showed distended gallbladder with some inflammation, ultrasound was done which showed no gallstones, pericholecystic fluid, normal common bile duct, positive Cullen. Patient's labs are within normal limits. Patient previously had a DVT in his leg about a year ago per patient however he is supposed to be on Eliquis but he states he has not taken any of his medication for about the last 6 months. I was called to see the patient due to the fact that he had increase bilious fluid out of his VIKTORIYA drain. [facility] Medical History (Updated 01/01/22 @ 08:[address] Seema Gann MD) Bipolar 1 disorder Hyperlipemia Hypertension Manic depressive disorder Pulmonary embolism Stomach ulcer Home Medications Oxcarbazepine 1 tab PO DAILY 09/19/20 [History Last Taken Unknown] buspirone 15 mg PO DAILY 09/19/20 [History Last Taken Unknown] hydroxyzine HCl 50 mg PO DAILY 09/19/20 [History Last Taken Unknown] nortriptyline 150 mg PO DAILY 09/19/20 [History Last Taken Unknown] apixaban 5 mg tablet 5 mg PO BID #60 tab 04/14/21 [Rx Last Taken Unknown] comp.stocking,thigh,long,large #2 ea 04/14/21 [Rx Last Taken Unknown] multivitamin 1 tab PO DAILY #90 tab 04/14/21 [Rx Last Taken Unknown] sildenafil 25 mg tablet 25 mg PO DAILY PRN #7 tab 04/14/21 [Rx Last Taken Unknown] levalbuterol tartrate 45 mcg/actuation aerosol inhaler 2 inh INHALATION Q6H PRN #15 g 04/16/21 [Rx Last Taken Unknown] Allergy/AdvReac Type Severity Reaction Status Date / Time naproxen Allergy NAUSEA AND Verified 04/14/21 14:13 BLEEDING Family History Father Diabetes Other Alcoholism Anxiety and depression Myocardial infarction Surgical History (Updated 01/01/22 @ 08:[address] Seema Gann MD) History of back surgery S/P laparoscopic cholecystectomy Social History Smoking Status: Current every day smoker tobacco type: cigarettes Tobacco: How many years used: 30 alcohol intake: never substance use type: does not use what type of physical activity do you participate in: none ROS Review of Systems ROS Unobtainable: other Constitutional Constitutional: Denies fatigue, fever(s), poor appetite, weight gain or weight loss ENT HEENT: Denies mouth lesions Cardiovascular Cardiovascular: Denies abdominal bloating, abdominal edema or abdominal pain Respiratory/Chest Respiratory/Chest: Denies change in mental status, change in phlegm color, chest congestion or chest tightness Gastrointestinal Gastrointestinal: Denies belching, bloating, change in bowel habits, change in stool character, chewing difficulty, coffee ground emesis, constipation, cramping, diarrhea, dyspepsia, dysphagia, early satiety, excessive flatus, fecal incontinence, heartburn, hematemesis, hematochezia, hemorrhoids, loose stools, melena, nausea, odynophagia, rectal bleeding, tenesmus, vomiting or weight changes Genitourinary Genitourinary: Denies abdominal discomfort, burning urination or itching Musculoskeletal Musculoskeletal: Reports as per HPI; Denies muscle weakness or myalgias Integumentary Integumentary: Denies jaundice Neurologic Neurologic: Denies lack of coordination or weakness Psychiatric Psychiatric: Denies confusion, depression, memory loss, mood swings, paranoia or suicidal ideation Endocrine Endocrinology: Denies systems reviewed and no addt'l complaints, except as documented Hematologic/Lymphatic Hematologic/Lymphatic: Denies anemia, easy bleeding, easy bruising or lymphadenopathy Allergic/Immunologic Allergic/Immunologic: Denies systems reviewed and no addt'l complaints, except as documented Physical Exam Const alert General Appearance: cooperative Orientation / Consciousness: oriented to person HEENT hearing grossly normal bilaterally Head and Scalp: normal to inspection Face and Sinus: face symmetric Nose: external nose normal Mouth: oral and palatal mucosa normal Eyes conjunctivae normal General Eye: normal appearance of both eyes Neck full ROM General: normal visual inspection Lymph Lymphatic: no lymphadenopathy noted Chest inspection of chest normal and palpation of chest normal Chest: symmetrical chest wall rise Resp normal respiratory effort Effort and Inspection: able to speak in complete sentences Cardio regular rate GI non-distended Percussion: normal to percussion Rectal Exam: deferred Neuro Speech: speech normal Gait (Neuro): normal gait Lab / Micro Data Result Diagrams: 01/01/22 08:40 01/01/22 08:40 Labs: Laboratory Results - last 24 hr 01/01/22 08:40: WBC 17.1 H, RBC 4.57 L, Hgb 15.1, Hct 43.6, MCV 95.4 H, MCH 33.0 H, MCHC 34.6, RDW Std Deviation 43.4, RDW Coeff of Kirt 12.4, Plt Count 275, MPV 9.1, Immature Gran % (Auto) 0.600, Neut % (Auto) 83.3 H, Lymph % (Auto) 11.2 L, Mcculloch % (Auto) 4.6, Eos % (Auto) 0.1, Baso % (Auto) 0.2, Absolute Neuts (auto) 14.3 H, Absolute Lymphs (auto) 1.92, Nucleated RBC % 0 01/01/22 08:40: Sodium 136, Potassium 4.4, Chloride 102, Carbon Dioxide 28.0, Anion Gap 6, BUN 14, Creatinine 0.96, Estim Creat Clear Calc 102.16, Est GFR (MDRD) Af Amer 107, Est GFR (MDRD) Non-Af 88, BUN/Creatinine Ratio 14.6, Glucose 159 H, Calcium 8.2 L, Total Bilirubin 0.60, Direct Bilirubin 0.19, AST 23, ALT 33, Alkaline Phosphatase 61, Total Protein 7.3, Albumin 2.7 L, Globulin 4.6 H Charges/Coding Visit Charges Inpatient E&M: 50850 Init Hosp L2
[2022-01-01 17:33] VITALS: BP 140/94; PULSE 55; RESP 18; TEMP 36.4; O2SAT 98
[2022-01-01 21:59] VITALS: BP 131/82; PULSE 56; RESP 18; TEMP 36.3; O2SAT 98
[2022-01-02] VITALS (18 sets, daily range): BP systolic 120–178; BP diastolic 53–97; PULSE 50–70; RESP 14–18; TEMP 36.3–36.9; O2SAT 95–100; BMI 37.0
[2022-01-02] MEDS: 0.9% Normal Saline 1,000 ML 75 ML IV (01:30)
[2022-01-02] MEDS: oxyCODONE 5 MG Tablet PO ×4 (02:04→20:56)
[2022-01-02] MEDS: Acetaminophen 325 MG Tablet 650 MG PO ×3 (02:04→20:57)
--- NOTE | 2022-01-02 05:55 | EKG12_ITS ---
Test Reason : AM Blood Pressure : / mmHG Vent. Rate : 060 BPM Atrial Rate : 060 BPM P-R Int : 166 ms QRS Dur : 094 ms QT Int : 432 ms P-R-T Axes : 049 032 019 degrees QTc Int : 432 ms Normal sinus rhythm Normal ECG When compared with ECG of 31-DEC-2021 14:11, MANUAL COMPARISON REQUIRED, DATA IS UNCONFIRMED Confirmed by SANDY REVELES, NATANAEL ([id number]), photo editor BALJEET CRAWFORD ([id number]) on 01/05/2022 10:10:24 A M Referred By: DONTAE Confirmed By:SOLE DELGADO MD
[2022-01-02 06:22] LABS: Absolute Lymphocyte Count 3.09 X10^3/uL (0.83-4.51); Absolute Neutrophil Count 6.8 X10^3/uL (2.0-7.7); Basophil# 0.03 X10^3/uL; Basophil% 0.3 % (0-1); Eosinophil# 0.26 X10^3/uL; Eosinophils% 2.4 % (0-5); Hematocrit 44.1 % (40-54); Hemoglobin 14.7 g/dL (13.0-16.5); Lymphocyte # 3.09 X10^3/ul (0.83-4.51); Lymphocyte % 28.5 % (19-41); Mean Corp Hgb Conc 33.3 g/dL (32-36); Mean Corpuscular Hgb 32.7 pg (27.0-32.0); Mean Corpuscular Volume 98.2 fL (80-94); Mean Platelet Vol. 9.2 fl (6.2-12.0); Monocyte# 0.58 X10^3/uL; Monocyte% 5.4 % (0-10); NRBC Flagged by Analyzer 0 % (0-5); Neutrophil # 6.84 X10^3/uL (2.7-7.7); Neutrophil % 63.1 % (47-70); Platelet Count 248 K/mm3 (150-450); RBC Distribution Width CV 12.4 % (11.6-14.6); Red Blood Count 4.49 M/mm3 (4.6-6.2); White Blood Count 10.8 K/mm3 (4.4-11.0)
[2022-01-02 06:47] LABS: Anion Gap 6 (5-15); BUN 16 mg/dL (7-18); BUN/Creat Ratio 17.5 RATIO (10-20); Calcium,Total 8.1 mg/dL (8.5-10.1); Chloride 106 mmol/L (98-107); Creatinine, Serum 0.91 mg/dL (0.70-1.30); EST Glomerular Filtration Rate 94 mL/min (>60); Est Glom Filt Rate - Afr Amer 113 mL/min (>60); Estimated Creatinine Clearance 107.78 ml/min; Glucose 143 mg/dL (74-106); Potassium 4.1 mmol/L (3.5-5.1); Sodium Level 140 mmol/L (136-145)
--- NOTE | 2022-01-02 07:27 | PCM.PN.SRG ---
Subjective Subjective Patient was given ERCP today. VIKTORIYA is still bilious. Objective Data Objective Data Vital Signs: Vital Signs Temp Pulse Resp BP Pulse Ox 97.4 F L 56 L 16 122/78 H 95 01/02/22 05:57 01/02/22 05:57 01/02/22 05:57 01/02/22 05:57 01/02/22 05:57 Oxygen Flow Rate (L/min) 1 Oxygen Delivery Method Room Air Weight: 273 lb 5.971 oz Body Mass Index (BMI) 37.0 Intake & Output: Intake and Output for Last 24 Hours 12/31/21 01/01/22 01/02/22 23:59 23:59 23:59 Intake Total 1242 / 1642 3639.88 / 3639.88 50 / 50 Output Total 515 / 960 965 / 965 Balance 1212 / 1552 3124.88 / 2679.88 -915 / -915 Lab / Micro Data Result Diagrams: 01/02/22 05:15 01/02/22 05:15 Labs: Laboratory Results - last 24 hr 01/01/22 08:40: WBC 17.1 H, RBC 4.57 L, Hgb 15.1, Hct 43.6, MCV 95.4 H, MCH 33.0 H, MCHC 34.6, RDW Std Deviation 43.4, RDW Coeff of Kirt 12.4, Plt Count 275, MPV 9.1, Immature Gran % (Auto) 0.600, Neut % (Auto) 83.3 H, Lymph % (Auto) 11.2 L, Brule % (Auto) 4.6, Eos % (Auto) 0.1, Baso % (Auto) 0.2, Absolute Neuts (auto) 14.3 H, Absolute Lymphs (auto) 1.92, Nucleated RBC % 0 01/01/22 08:40: Sodium 136, Potassium 4.4, Chloride 102, Carbon Dioxide 28.0, Anion Gap 6, BUN 14, Creatinine 0.96, Estim Creat Clear Calc 102.16, Est GFR (MDRD) Af Amer 107, Est GFR (MDRD) Non-Af 88, BUN/Creatinine Ratio 14.6, Glucose 159 H, Calcium 8.2 L, Total Bilirubin 0.60, Direct Bilirubin 0.19, AST 23, ALT 33, Alkaline Phosphatase 61, Total Protein 7.3, Albumin 2.7 L, Globulin 4.6 H 01/02/22 05:15: WBC 10.8, RBC 4.49 L, Hgb 14.7, Hct 44.1, MCV 98.2 H, MCH 32.7 H, MCHC 33.3, RDW Std Deviation 45.0 H, RDW Coeff of Kirt 12.4, Plt Count 248, MPV 9.2, Immature Gran % (Auto) 0.300, Neut % (Auto) 63.1, Lymph % (Auto) 28.5, Brule % (Auto) 5.4, Eos % (Auto) 2.4, Baso % (Auto) 0.3, Absolute Neuts (auto) 6.8, Absolute Lymphs (auto) 3.09, Nucleated RBC % 0 01/02/22 05:15: Sodium 140, Potassium 4.1, Chloride 106, Carbon Dioxide 28.0, Anion Gap 6, BUN 16, Creatinine 0.91, Estim Creat Clear Calc 107.78, Est GFR (MDRD) Af Amer 113, Est GFR (MDRD) Non-Af 94, BUN/Creatinine Ratio 17.5, Glucose 143 H, Calcium 8.1 L Micro: Microbiology 12/31/21 12:17 Nasal Secretion SARS-CoV-2 Antigen (Rapid) - Final Physical Exam Resp normal respiratory effort Cardio regular rate GI GI Narrative: Abdomen: Soft, nondistended, tender near incision's dressed clean dry and intact-especially in the right upper quadrant, no peritoneal signs, VIKTORIYA bilious Assessment & Plan Assessment/Plan (1) S/P laparoscopic cholecystectomy: (2) Acute cholecystitis: (3) Bile leak, postoperative: PLAN: Patient did tolerate a regular diet yesterday?n.p.o. at midnight. VIKTORIYA still bilious ERCP this morning with Dr. Nii Todd IV Pain control Encourage ambulation Seema Gann M.D. Pager: [phone] [facility] [address] [place] [address], [facility], [address] [place] [address] Office: [phone]
--- NOTE | 2022-01-02 07:41 | RAD_ITS ---
STUDY: ERCP. REASON FOR EXAM: Male, 47 years old. PAIN FLUOROSCOPY TIME (if supplied): ( 2 minutes and 8 seconds ) minutes/seconds 13 images were obtained. TECHNIQUE: An ERCP was performed by the corn cooker. COMPARISON: None. FINDINGS: The patient is status post cholecystectomy. The biliary ducts are unremarkable. A common bile duct stent is seen. RAD/ERCP Biliary Only IMPRESSION: Biliary stent placement. Electronically Signed: Anthony Garvin MD at 12:08 EDT ,
--- NOTE | 2022-01-02 11:01 | CASEMGMT ---
This RN CM to room to complete CM assessment and pt is out of the dept for testing. CM to follow up with pt when returns. SStaten RN CM
[2022-01-02] MEDS: 0.9% Saline Lock 10 ML Syringe IV (12:22)
[2022-01-02] MEDS: Ondansetron 4 MG/2 ML Vial IV (12:22)
--- NOTE | 2022-01-02 13:25 | CASEMGMT ---
ESHA HARRINGTON assessment: Face to Face with patient for initial transition planning/care coordination assessment. ESHA HARRINGTON introduced self and role at [facility], pt voices understanding and consents to assessment. Pt is lying in bed in no distress on room air. Pt is A/Ox4 and answers all questions appropriately. Care providers, pharmacy, and demographics verified/updated. Presentation: Pt c/o abd pain after eating hamburger Admitting dx: Acute darrin PCP: Esperanza Specialists: None [facility]erred [facility]acy: [facility] Insurance: [employer] Prescription Benefit: [employer]/CRSC Living Will/HPOA: Pt does not have LW/HPOA and declines AD info. LNOK: Marko Rai, father Living Arrangements: Pt states lives 'here and there' with friends and declines any further resources. Address listed on demographics is his father's for any correspondence. Pt always usually has a place to stay. Pt is independent with ADL's. Transportation: Pt states walks where he needs to go or friends drive and states no transportation concerns. DME/HHC: Pt states no DME at home or need for any DME. Pt states no hx of HHC or SNF. Pt states no concerns with going home at time of discharge. Pt states does smoke 1/2 pack cigarettes daily but does not drink ETOH. Pt states no further concerns/needs. CM to follow for any further discharge planning/needs. Advised pt to ask for CM if any further questions/concerns/needs arise, voices understanding. Pt Goal: Home Plan: Home SStaten ESHA HARRINGTON
--- NOTE | 2022-01-02 13:42 | OP.ERCP_ITS ---
Patient Name: Alex Rai Procedure Date: 01/02/2022 7:10 AM Date of : 1975 Age: 47 Procedure: ERCP Indications: Suspected bile leak Providers: Milton Bales DO Medicines: Monitored Anesthesia Care Patient Profile: This patient has no history of previous ERCP. He is status post laparoscopic cholecystectomy recently. Complications: No immediate complications. Procedure: Pre-Anesthesia Assessment: - Prior to the procedure, a History and Physical was performed, and patient medications and allergies were reviewed. The patient is competent. The risks and benefits of the procedure and the sedation options and risks were discussed with the patient. All questions were answered and informed consent was obtained. Patient identification and proposed procedure were verified by the physician in the pre-procedure area. Mental Status Examination: alert and oriented. Airway Examination: normal oropharyngeal airway and neck mobility. Respiratory Examination: clear to auscultation. CV Examination: normal. Prophylactic Antibiotics: The patient does not require prophylactic antibiotics. Prior Anticoagulants: The patient has taken no previous anticoagulant or antiplatelet agents. ASA Grade Assessment: II - A patient with mild systemic disease. After reviewing the risks and benefits, the patient was deemed in satisfactory condition to undergo the procedure. The anesthesia plan was to use moderate sedation / analgesia (conscious sedation). Immediately prior to administration of medications, the patient was re-assessed for adequacy to receive sedatives. The heart rate, respiratory rate, oxygen saturations, blood pressure, adequacy of pulmonary ventilation, and response to care were monitored throughout the procedure. The physical status of the patient was re-assessed after the procedure. After obtaining informed consent, the scope was passed under direct vision. Throughout the procedure, the patient's blood pressure, pulse, and oxygen saturations were monitored continuously. The duodenoscope was introduced through the mouth, and advanced to the duodenum and used to inject contrast into the bile duct. The ERCP was accomplished without difficulty. The patient tolerated the procedure well. Scope In: 8:10:53 AM Scope Out: 8:59:39 AM Total Procedure Duration Time 0 hours 48 minutes 46 seconds Findings: The hairspring truer film was normal. The esophagus was successfully intubated under direct vision. The scope was advanced to a normal major papilla in the descending duodenum without detailed examination of the pharynx, larynx and associated structures, and upper GI tract. The upper GI tract was grossly normal. The bile duct was deeply cannulated. Contrast was injected. I personally interpreted the bile duct images. There was brisk flow of contrast through the ducts. Opacification of the lower third of the main bile duct was successful. The maximum diameter of the ducts was 8 mm. The lower third of the main bile duct contained one stone, which was 6 mm in diameter. The lower third of the main bile duct contained filling defect(s) thought to be a stone. A straight Roadrunner wire was passed into the biliary tree. A 5 mm biliary sphincterotomy was made with a traction (standard) sphincterotome using ERBE electrocautery. There was no post-sphincterotomy bleeding. The biliary tree was swept with a 15 mm balloon starting at the bifurcation. Sludge was swept from the duct. All stones were removed. A 5 mm biliary sphincterotomy was made with a traction (standard) sphincterotome using ERBE electrocautery. There was no post-sphincterotomy bleeding. One 10 mm by 6 cm covered metal stent was placed 5 cm into the common bile duct. Bile flowed through the stent. The stent was in good position. A standard esophagogastroduodenoscopy scope was used for the examination of the upper gastrointestinal tract. The scope was passed under direct vision through the upper GI tract. A large amount of food (residue) was found in the entire examined stomach. Impression: - A large amount of food (residue) in the stomach. - A filling defect consistent with a stone was seen on the cholangiogram. - Choledocholithiasis was found. Complete removal was accomplished by biliary sphincterotomy and balloon extraction. - A biliary sphincterotomy was performed. - The biliary tree was swept. - A biliary sphincterotomy was performed. - One covered metal stent was placed into the common bile duct. Procedure Code(s): --- Professional --- 10894, Endoscopic retrograde cholangiopancreatography (ERCP); with placement of endoscopic stent into biliary or pancreatic duct, including pre- and post-dilation and guide wire passage, when performed, including sphincterotomy, when performed, each stent [id number], Endoscopic retrograde cholangiopancreatography (ERCP); with removal of calculi/debris from biliary/pancreatic duct(s) 40363, 26, Endoscopic catheterization of the biliary ductal system, radiological supervision and interpretation CPT copyright 2017 [employer]. All rights reserved. The codes documented in this report are preliminary and upon hospital coder review may be revised to meet current compliance requirements. Milton Bales DO 01/02/2022 1:42:09 PM This report has been signed electronically. Number of Addenda: 0 Note Initiated On: 01/02/2022 7:10 AM
--- NOTE | 2022-01-02 13:43 | OP.CCLET_ITS ---
01/02/2022 Josee Mata [facility] [address] [place] [address] Re : ERCP procedure for Alex Rai Dear Dr. Mata This procedure was performed on Sunday, January 02, 2022. My impressions and recommendations are as follows: Impressions : - A large amount of food (residue) in the stomach. - A filling defect consistent with a stone was seen on the cholangiogram. - Choledocholithiasis was found. Complete removal was accomplished by biliary sphincterotomy and balloon extraction. - A biliary sphincterotomy was performed. - The biliary tree was swept. - A biliary sphincterotomy was performed. - One covered metal stent was placed into the common bile duct. Recommendations : My findings are described in the full procedure note, which is enclosed. If I can be of further assistance, please feel free to contact me at . Sincerely, Milton Bales, 01/02/2022 1:42:09 PM This report has been signed electronically.
[2022-01-03] MEDS: oxyCODONE 5 MG Tablet PO ×2 (00:59→05:06)
[2022-01-03 04:00] VITALS: BP 156/84; PULSE 56; RESP 14; TEMP 36.9; O2SAT 96
[2022-01-03] MEDS: Acetaminophen 325 MG Tablet 650 MG PO (05:06)
--- NOTE | 2022-01-03 07:10 | PCM.PN.SRG ---
Subjective Subjective Patient's VIKTORIYA is serosang, patient tolerated regular diet. Objective Data Objective Data Vital Signs: Vital Signs Temp Pulse Resp BP Pulse Ox 98.4 F 56 L 14 156/84 H 96 01/03/22 04:00 01/03/22 04:00 01/03/22 04:00 01/03/22 04:00 01/03/22 04:00 Oxygen Flow Rate (L/min) 1 Oxygen Delivery Method Room Air Weight: 273 lb 5.971 oz Body Mass Index (BMI) 37.0 Intake & Output: Intake and Output for Last 24 Hours 01/01/22 01/02/22 01/03/22 23:59 23:59 23:59 Intake Total 3639.88 / 3639.88 1448.0 / 1848.0 850 / 850 Output Total 515 / 960 1760 / 2760 2024 Balance 3124.88 / 2679.88 -312.0 / -912.0 -1175 / -1175 Lab / Micro Data Result Diagrams: 01/02/22 05:15 01/02/22 05:15 Micro: Microbiology 12/31/21 12:17 Nasal Secretion SARS-CoV-2 Antigen (Rapid) - Final Radiography Diagnostic Testing: Radiology Impression ERCP X-Ray 01/02/22 07:41 IMPRESSION: Biliary stent placement. Electronically Signed: Anthony Garvin MD at 12:08 EDT Reading Location ID and State: [facility] / [place] , Service support , Physical Exam Resp normal respiratory effort Cardio regular rate GI GI Narrative: Abdomen: Soft, nondistended, tender near incision's dressed clean dry and intact, no peritoneal signs VIKTORIYA serosanguineous Assessment & Plan Assessment/Plan (1) S/P ERCP: (2) S/P laparoscopic cholecystectomy: (3) Bile leak, postoperative: PLAN: reMoved VIKTORIYA as it was serosanguineous patient tolerating regular diet. DC antibiotics. Okay to DC home. Seema Gann M.D. Pager: [phone] [facility] [address] [place] [address], [facility] [place], [address] [place] [address] Office: [phone]
[2022-01-03 07:30] VITALS: O2SAT 95
--- NOTE | 2022-01-03 08:17 | EX.PCM.DISCH ---
Discharge Instructions Diet Discharge Diet: Light diet - advance as tolerated Activity Discharge Activity: May Not Drive (while taking narcotic pain medications.) May shower in (days): 1 Lifting Restrictions: no lifting >20 lbs x 2 wks, no strenuous exercise for 4 wks Dressing / Incision Call your doctor if your incision/area has: Continuous Slow Oozing, Sudden Increased Bleeding, Increased Pain/ Swelling, Increased Redness, Foul Smelling Discharge and Swelling at the incision site Call your doctor if you observe: Fever of 101 or Higher Remove Dressing in: 2 days Cleanse incision/area with: Soap & Water Additional Dressing/Incision Instructions:: Steri-Strips will fall off in 7 to 10 days, if they do not fall off okay to remove after 10 days. Follow Up Care Please Follow Up With: Seema Gann MD When: Call the office for a follow-up appointment 2 weeks; after 5 PM and on the weekends call [phone] with any concerns. Test Results: Test results from this visit will be discussed in further detail at your follow-up appointment, if applicable. Discharge Plan Admission Admit Date/Time: 01/01/22 15:11 Attending Provider: Seema Gann Primary Care Provider: Josee Mata Consulting Providers: Milton Bales Discharge Orders/Prescriptions Prescriptions: New oxycodone-acetaminophen 5-325 mg tablet 1 - 2 tab PO Q6H PRN (Reason: pain) 3 Days Qty: 16 RF: 0 Continued multivitamin Tablet 1 tab PO DAILY Qty: 90 RF: 0 Held apixaban 5 mg tablet 5 mg PO BID Qty: 60 RF: 1 Hold Instructions: until see pcp as has not taken for 6 months per pt sildenafil 25 mg tablet 25 mg PO DAILY PRN (Reason: sexual activity) Qty: 7 RF: 1 Hold Instructions: until see pcp as has not taken for 6 months per pt hydroxyzine HCl 50 MG tablet 50 mg PO DAILY RF: 0 Hold Instructions: until see pcp as has not taken for 6 months per pt nortriptyline 50 MG capsule 150 mg PO DAILY RF: 0 Hold Instructions: until see pcp as has not taken for 6 months per pt buspirone 15 MG tablet 15 mg PO DAILY RF: 0 Hold Instructions: until see pcp as has not taken for 6 months per pt Oxcarbazepine 600 MG tablet 1 tab PO DAILY RF: 0 Hold Instructions: until see pcp as has not taken for 6 months per pt No Action (DME) comp.stocking,thigh,long,large Misc See Rx Instructions .ROUTE .MEDSUPPLY Qty: 2 RF: 2 levalbuterol tartrate 45 mcg/actuation HFA aerosol inhaler 2 inh inhalation Q6H PRN (Reason: shortness of breath or wheezing) Qty: 15 RF: 1 Referrals / Follow Up: Josee Mata MD [Primary Care Provider] - (to discuss home medications as pt states he has not taken any for 6 months) Friend,DO Milton [STAFF PHYSICIAN] - (call office for f/u in 2 weeks) Disposition Disposition (needs filled in before D/C Order can be placed): Home, Self Care
--- NOTE | 2022-01-03 08:22 | PCM.DC.SUM ---
Providers Date of Admission: 01/01/22 Primary Care Physician: Dr. Josee Mata MD Consultations 01/01/22 08:25 Consult: Gastroenterology Routine Consulting Provider: Milton Bales Reason for Consult: ercp- bile leak after fannie EMERGENT Consult: No MD Notified: Yes Date Notified: 01/01/22 Time Notified: 08:26 Method of Notification: Verbal Reason For Visit: ACUTE FANNIE Diagnosis Discharge Diagnosis (1) S/P ERCP: Status: Acute Code(s): Z98.890 - Other specified postprocedural states (2) S/P laparoscopic cholecystectomy: Status: Acute Code(s): Z90.49 - Acquired absence of other specified parts of digestive tract (3) Bile leak, postoperative: Status: Resolved Code(s): K91.89 - Other postprocedural complications and disorders of digestive system; K83.8 - Other specified diseases of biliary tract Medications at Discharge Home Medications Oxcarbazepine 1 tab PO DAILY 09/19/20 buspirone 15 mg PO DAILY 09/19/20 hydroxyzine HCl 50 mg PO DAILY 09/19/20 nortriptyline 150 mg PO DAILY 09/19/20 apixaban 5 mg tablet 5 mg PO BID #60 tab 04/14/21 comp.stocking,thigh,long,large #2 ea 04/14/21 multivitamin 1 tab PO DAILY #90 tab 04/14/21 sildenafil 25 mg tablet 25 mg PO DAILY PRN #7 tab 04/14/21 levalbuterol tartrate 45 mcg/actuation aerosol inhaler 2 inh INHALATION Q6H PRN #15 g 04/16/21 oxycodone-acetaminophen 1 - 2 tab PO Q6H PRN 3 Days #16 tab 01/03/22 Hospital Course Operations cholecystecomy and ERCP Procedures None Summary of Care Provided Hospital Course: Patient was initially admitted from the ER due to acute cholecystitis/hydrops of the gallbladder. Patient underwent laparoscopic cholecystectomy, postop. Patient did have bile leak and did undergo an ERCP which showed choledocholithiasis which was removed and stent was placed. After ERCP patient's VIKTORIYA drain was serosanguineous and was able to be removed before discharge. Patient was tolerating regular diet he will be DC'd home. Did hold patient's home medications of the patient states he has not had any home medications for last 6 months. We will have patient follow-up with PCP as well. Physical Exam Const alert, oriented x3 and no apparent distress HEENT normocephalic and head/scalp atraumatic Resp normal respiratory effort Cardio regular rate GI GI Narrative: Abdomen: Soft, nondistended, tender near incision's dressed clean dry and intact, no peritoneal signs VIKTORIYA serosanguineous?VIKTORIYA removed at bedside Weight / BMI Weight Weight: 273 lb 5.971 oz Body Mass Index (BMI) 37.0 ABG / Lab / Microbiology Data Result Diagrams: 01/02/22 05:15 01/02/22 05:15 Microbiology: Microbiology 12/31/21 12:17 Nasal Secretion SARS-CoV-2 Antigen (Rapid) - Final Radiography Diagnostic Testing: Radiology Impression ERCP X-Ray 01/02/22 07:41 IMPRESSION: Biliary stent placement. Electronically Signed: Anthony Garvin MD at 12:08 EDT , D/C Instructions Discharge Diet: Light diet - advance as tolerated May shower in (days): 1 Call your doctor if your incision/area has: Continuous Slow Oozing, Sudden Increased Bleeding, Increased Pain/ Swelling, Increased Redness, Foul Smelling Discharge and Swelling at the incision site Call your doctor if you observe: Fever of 101 or Higher Cleanse incision/area with: Soap & Water Additional Dressing/Incision Instructions: Steri-Strips will fall off in 7 to 10 days, if they do not fall off okay to remove after 10 days. Please Follow Up With: Seema Gann MD When: Call the office for a follow-up appointment 2 weeks; after 5 PM and on the weekends call [phone] with any concerns. Meaningful Use Info Meaningful Use Diagnoses (Choose all that apply): None applicable Discharge Plan Admission Admit Date/Time: 01/01/22 15:11 Attending Provider: Seema Gann Primary Care Provider: Josee Mata Consulting Providers: Milton Bales Discharge Orders/Prescriptions Prescriptions: New oxycodone-acetaminophen 5-325 mg tablet 1 - 2 tab PO Q6H PRN (Reason: pain) 3 Days Qty: 16 RF: 0 Continued multivitamin Tablet 1 tab PO DAILY Qty: 90 RF: 0 Held apixaban 5 mg tablet 5 mg PO BID Qty: 60 RF: 1 Hold Instructions: until see pcp as has not taken for 6 months per pt sildenafil 25 mg tablet 25 mg PO DAILY PRN (Reason: sexual activity) Qty: 7 RF: 1 Hold Instructions: until see pcp as has not taken for 6 months per pt hydroxyzine HCl 50 MG tablet 50 mg PO DAILY RF: 0 Hold Instructions: until see pcp as has not taken for 6 months per pt nortriptyline 50 MG capsule 150 mg PO DAILY RF: 0 Hold Instructions: until see pcp as has not taken for 6 months per pt buspirone 15 MG tablet 15 mg PO DAILY RF: 0 Hold Instructions: until see pcp as has not taken for 6 months per pt Oxcarbazepine 600 MG tablet 1 tab PO DAILY RF: 0 Hold Instructions: until see pcp as has not taken for 6 months per pt No Action (DME) comp.stocking,thigh,long,large Misc See Rx Instructions .ROUTE .MEDSUPPLY Qty: 2 RF: 2 levalbuterol tartrate 45 mcg/actuation HFA aerosol inhaler 2 inh inhalation Q6H PRN (Reason: shortness of breath or wheezing) Qty: 15 RF: 1 Referrals / Follow Up: Josee Mata MD [Primary Care Provider] - (to discuss home medications as pt states he has not taken any for 6 months) Milton Bales DO [STAFF PHYSICIAN] - (call office for f/u in 2 weeks) Disposition Disposition (needs filled in before D/C Order can be placed): Home, Self Care
[2022-01-03 09:41] VITALS: BP 166/99; PULSE 56; RESP 18; TEMP 36.5; O2SAT 96
--- NOTE | 2022-01-03 10:55 | NURSING ---
Addendum entered by Keesha Hilton 01/03/22 12:22: Dr. Gann notified of patient leaving without his discharge paperwork. Original Note: This nurse reviewed discharge instructions with patient and IV was taken out. The patient had questions on his prescription that was sent to the [facility] pharmacy. As this RN was on the phone with the pharmacy, patient walked out and left. This RN did not see patient leave but was told afterwards. The patient left all discharge paperwork including discharge medication form, instructions and follow up visit information in the room. This RN called patients cellphone to inform him that he left his paperwork behind and answers to his prescription, however patient did not answer his phone and the voicemail was not set up so no message left. tobacco weigher Kuldip aware of situation.
== END 2022-01-03 10:40 | disposition home or self-care (01) | DRG 418 ==
LOC: ED 12:20 → PCU 12:48
PROVIDERS: Emergency Medicine; Internal Medicine Gastroenterology; Admitting Provider Surgery; Emergency Provider Student in an Organized Health Care Education/Training Program; PCP Internal Medicine; Visit Provider Surgery
PROC: (CPT 47610; principal; 2021-12-31 12:40)
PROC: 0FC98ZZ Extirpation of Matter from Common Bile Duct, Via Natural or Artificial Opening Endoscopic (ICD-10-PCS; CPT 43260; principal; 2022-01-02 07:10)
DX: K80.66 Calculus of gallbladder and bile duct with acute and chronic cholecystitis without obstruction (principal); K91.89 Other postprocedural complications and disorders of digestive system; K82.1 Hydrops of gallbladder; F31.9 Bipolar disorder, unspecified; K83.8 Other specified diseases of biliary tract; E78.5 Hyperlipidemia, unspecified; I10 Essential (primary) hypertension; K82.8 Other specified diseases of gallbladder; F17.210 Nicotine dependence, cigarettes, uncomplicated; Z91.14 Patient's other noncompliance with medication regimen; Z79.899 Other long term (current) drug therapy; Z86.711 Personal history of pulmonary embolism
CPT/HCPCS: 36415; 74177; 74328; 76000; 76705; 80048; 80053; 80076; 83690; 84484; 85025; 87811; 88304; 93005; 96374; 96375; 97802; 99251; 99284; 99285; J7030; J7120; Q9967; A4216; G0463; J2405

== ENCOUNTER 2022-03-08 07:02 | Emergency (ER) | payer MEDICARE, MEDICAID, SELFPAY ==
[2022-03-08 07:03] VITALS: BP 162/93; PULSE 75; RESP 18; TEMP 36.9; O2SAT 96; BMI 38.2
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
--- NOTE | 2022-03-08 07:16 | CT_ITS ---
EXAM: CT HEAD WITHOUT INTRAVENOUS CONTRAST CLINICAL INDICATION: Head injury TECHNIQUE: Multiple axial images were obtained of the head without intravenous contrast. This CT exam was performed using one or more of the following dose reduction techniques: automated exposure control, adjustment of the mA and/or kV according to patient size, and/or use of iterative reconstruction technique. This report was created using [employer] report generation technology. COMPARISON: None. FINDINGS: BRAIN AND EXTRA-AXIAL SPACES: Normal. No intra- or extra-axial hemorrhage. No evidence of acute infarct. No intracranial mass or mass effect. There is preservation of the lott/white matter interface. Posterior fossa structures are unremarkable. Ventricles are appropriate for age. No hydrocephalus. Basal cisterns are patent. BONES/JOINTS: Normal. No discrete lytic or blastic abnormalities. SOFT TISSUES: Bilateral scalp swelling. SINUSES: Unremarkable as visualized. Clear. MASTOID AIR CELLS: Normal. Clear. ORBITS: Visualized globes, extraocular muscles, optic nerves and retrobulbar fat appear unremarkable. CT/Brain/Head without Contrast IMPRESSION: No evidence of acute intracranial injury. Electronically Signed: Doug Arce MD at 8:21 EDT ,
[2022-03-08] MEDS: Lidocaine 1% /Epi 1:100 (20ml) 20 ML Vial INFILT (07:24)
[2022-03-08] MEDS: Diphth,Pertuss(Acell),Tet Vac 0.5 ML Vial IM (07:24)
[2022-03-08] MEDS: Lidocaine/Epi/Tetracaine 50 ML 1 APPLIC TOPICAL (07:25)
[2022-03-08 07:42] LABS: Absolute Lymphocyte Count 2.15 X10^3/uL (0.83-4.51); Absolute Neutrophil Count 4.5 X10^3/uL (2.0-7.7); Basophil# 0.03 X10^3/uL; Basophil% 0.4 % (0-1); Eosinophil# 0.54 X10^3/uL; Eosinophils% 6.9 % (0-5); Hemoglobin 14.2 g/dL (13.0-16.5); Lymphocyte # 2.15 X10^3/ul (0.83-4.51); Lymphocyte % 27.6 % (19-41); Mean Corp Hgb Conc 33.8 g/dL (32-36); Mean Corpuscular Volume 94.6 fL (80-94); Monocyte# 0.52 X10^3/uL; Monocyte% 6.7 % (0-10); NRBC Flagged by Analyzer 0 % (0-5); Neutrophil # 4.52 X10^3/uL (2.7-7.7); Neutrophil % 58.1 % (47-70); Platelet Count 249 K/mm3 (150-450); RBC Distribution Width CV 12.5 % (11.6-14.6); RBC Distribution Width SD 43.4 fl (35.1-43.9); Red Blood Count 4.44 M/mm3 (4.6-6.2); White Blood Count 7.8 K/mm3 (4.4-11.0)
[2022-03-08 07:55] LABS: ALB/GLOB Ratio 0.7 RATIO (0.9-2.4); AST(SGOT) 21 U/L (15-37); Alanine Aminotransfer ALT/SGPT 21 U/L (16-61); Albumin, Serum 3.1 g/dL (3.2-5.0); Alkaline Phosphatase 76 U/L (45-117); Anion Gap 3 (5-15); BUN 12 mg/dL (7-18); BUN/Creat Ratio 13.1 RATIO (10-20); Calcium,Total 8.6 mg/dL (8.5-10.1); Chloride 108 mmol/L (98-107); Creatinine, Serum 0.91 mg/dL (0.70-1.30); EST Glomerular Filtration Rate 94 mL/min (>60); Est Glom Filt Rate - Afr Amer 113 mL/min (>60); Estimated Creatinine Clearance 107.78 ml/min; Globulin 4.2 g/dL (2.2-4.2); Glucose 137 mg/dL (74-106); Potassium 3.5 mmol/L (3.5-5.1); Protein, Total 7.3 g/dL (6.4-8.2); Sodium Level 138 mmol/L (136-145)
[2022-03-08 08:05] LABS: International Normalized Ratio 1.2; Prothrombin Time (Protime)PT. 14.8 SECONDS (11.7-14.9)
[2022-03-08 09:11] VITALS: BP 136/83; PULSE 86; RESP 18; O2SAT 96
== END 2022-03-08 09:29 | disposition home or self-care (01) ==
PROVIDERS: Emergency Provider Emergency Medicine; PCP Internal Medicine; Visit Provider Emergency Medicine
DX: S01.01XA Laceration without foreign body of scalp, initial encounter (principal); F31.9 Bipolar disorder, unspecified; V18.0XXA Pedal cycle driver injured in noncollision transport accident in nontraffic accident, initial encounter; Y93.55 Activity, bike riding; Y99.8 Other external cause status; I10 Essential (primary) hypertension; E78.5 Hyperlipidemia, unspecified; F17.210 Nicotine dependence, cigarettes, uncomplicated; Z79.899 Other long term (current) drug therapy; Z86.711 Personal history of pulmonary embolism
CPT/HCPCS: 12002; 70450; 80053; 85025; 85610; 85730; 90715; 99284; A4216